=== PATIENT | male | born 1965 | race Caucasian/White ===

== ENCOUNTER → 2019-01-15 | Emergency (ER) | payer OTHER ==
[~2019-01-15] VITALS: Ht 170.2 cm; Wt 127.0 kg
[~2019-01-15] MED LIST: ALLEGRA-D 12 H1 EACH PO; KETO10TA2 PO
== END | disposition home or self-care (01) ==
LOC: ER 00:54
DX: J32.8 Other chronic sinusitis (principal)

== ENCOUNTER → 2021-02-13 10:38 | Outpatient (CLI) | payer OTHER | END | disposition home or self-care (01) | LOC: LAB 10:38 | PROVIDERS: ATTEND General Practice | DX: Z00.01 Encounter for general adult medical examination with abnormal findings (principal); Z68.42 Body mass index [BMI] 45.0-49.9, adult; Z11.3 Encounter for screening for infections with a predominantly sexual mode of transmission; Z11.4 Encounter for screening for human immunodeficiency virus [HIV]; Z12.11 Encounter for screening for malignant neoplasm of colon; Z12.31 Encounter for screening mammogram for malignant neoplasm of breast; Z12.5 Encounter for screening for malignant neoplasm of prostate; Z13.0 Encounter for screening for diseases of the blood and blood-forming organs and certain disorders involving the immune mechanism; Z13.220 Encounter for screening for lipoid disorders; Z13.29 Encounter for screening for other suspected endocrine disorder; G47.30 Sleep apnea, unspecified; E66.01 Morbid (severe) obesity due to excess calories ==

== ENCOUNTER 2021-08-27 15:48 | Outpatient (CLI) | payer OTHER | END 2021-08-27 16:00 | disposition home or self-care (01) | LOC: RAD 15:48 | PROVIDERS: ATTEND Specialist | DX: M62.830 Muscle spasm of back (principal) ==

== ENCOUNTER → 2023-11-04 10:29 | Outpatient (CLI) | payer OTHER ==
[2023-11-04 11:57] LABS: HEMOGLOBIN 14.9 g/dL (13-16.00); MEAN CORPUSCULAR HEMOGLOBIN 32.8 pg (27.00-32.0); MEAN CORPUSCULAR HGB CONC 34.6 g/dl (32.0-36.0); PLATELET COUNT 234 K/uL (150-450); RED BLOOD COUNT 4.53 M/uL (4.00-6.00); RED CELL DISTRIBUTION WIDTH 12.9 % (11.5-14.5)
[2023-11-04 11:57] LABS: PH,URINE 5.5 (5.0-8.0); URINE APPEARANCE Clear; URINE BILIRRUBIN Negative (NEGATIVE); URINE BLOOD Negative; URINE COLOR Yellow; URINE GLUCOSE Negative (NEGATIVE); URINE LEUKOCYTE Negative; URINE NITRATE Negative; URINE PROTEIN Negative (NEGATIVE); URINE UROBILINOGEN 0.2 E.U./dl
[2023-11-04 11:58] LABS: URINE BACTERIA 7.5 uL (0.0-1933); URINE EPITHELIAL CELLS 1.5 uL (0.0-38.8); URINE RBC 4.3 uL (0.0-20.8); URINE WBC 4.2 uL (0.0-23.2)
[2023-11-04 12:03] LABS: INR 0.95; PARTIAL THROMBOPLASTIN TIME 29.9 SECONDS (22.0-34.0)
[2023-11-04 12:05] LABS: URIC ACID 6.4 mg/dL (3.5-8.5)
[2023-11-04 12:12] LABS: ALBUMIN 3.7 gm/dL (3.4-5.0); BILIRUBIN TOTAL 0.4 mg/dL (0.3-1.2); BILIRUBIN,CONJUGATED 0.11 mg/dL (0.0-0.2); BILIRUBIN,UNCONJUGATED 0.29 mg/dL (0.0-0.6); CALCIUM 8.6 mg/dL (8.5-10.1); CHOL HDL RATIO 3.5 (0-5.0); CREATININE SERUM 0.84 mg/dL (0.70-1.30); FERRITIN 231.4 NG/ML (26-388); GFR 93.85; GLOBULINA 2.9 G/DL (2.4-3.5); POTASSIUM 4.13 mEq/L (3.5-5.1); PROSTATIC SPECIFIC ANTIGEN 0.38 NG/ML (0.010-4.00); TOTAL PROTEIN 6.6 gm/dL (6.4-8.2); TSH 1.05 uIU/mL (0.358-3.74)
[2023-11-04 12:33] LABS: VITAMIN D3 25 HYDROXY 25.88 ng/ml (30-120)
== END | disposition home or self-care (01) ==
LOC: LAB 10:29
DX: Z13.1 Encounter for screening for diabetes mellitus (principal); Z13.220 Encounter for screening for lipoid disorders; Z13.0 Encounter for screening for diseases of the blood and blood-forming organs and certain disorders involving the immune mechanism; Z13.9 Encounter for screening, unspecified; Z13.29 Encounter for screening for other suspected endocrine disorder; Z12.11 Encounter for screening for malignant neoplasm of colon; Z11.3 Encounter for screening for infections with a predominantly sexual mode of transmission; Z11.9 Encounter for screening for infectious and parasitic diseases, unspecified; Z13.21 Encounter for screening for nutritional disorder; Z12.5 Encounter for screening for malignant neoplasm of prostate; Z91.013 Allergy to seafood

== ENCOUNTER 2023-11-04 11:42 | Outpatient (CLI) | payer OTHER | END 2023-11-04 12:08 | disposition home or self-care (01) | LOC: SONOGRAMA 11:42 | DX: R10.9 Unspecified abdominal pain (principal) ==

== ENCOUNTER 2023-11-06 13:01 | Outpatient (CLI) | payer OTHER ==
[2023-11-06 13:58] LABS: ob NEGATIVE (NEGATIVE)
== END 2023-11-06 13:41 | disposition home or self-care (01) ==
LOC: LAB 13:01
DX: Z13.1 Encounter for screening for diabetes mellitus (principal); Z13.220 Encounter for screening for lipoid disorders; Z13.0 Encounter for screening for diseases of the blood and blood-forming organs and certain disorders involving the immune mechanism; Z13.9 Encounter for screening, unspecified; Z13.29 Encounter for screening for other suspected endocrine disorder; Z12.11 Encounter for screening for malignant neoplasm of colon; Z11.3 Encounter for screening for infections with a predominantly sexual mode of transmission; Z11.9 Encounter for screening for infectious and parasitic diseases, unspecified; Z13.21 Encounter for screening for nutritional disorder; Z12.5 Encounter for screening for malignant neoplasm of prostate; Z91.013 Allergy to seafood